=== PATIENT | female | born 1970 | race Caucasian/White ===

== ENCOUNTER 2017-11-19 03:26 | Emergency (ER) | payer OTHER ==
[2017-11-19 03:41] VITALS: BP 118/54
--- NOTE | 2017-11-19 04:09 | EDPHY ---
H & P Time Seen by Provider: 11/19/17 03:35 HPI/ROS: CC: right thumb laceration HPI: This 47-year-old female presents to the emergency department today for a right thumb laceration sustained just prior to arrival. She was at work and throwing the trash into a bin and the bag did not quite make it in the bin so she pushed on the bag and a broken glass sliced her thumb. She has good sensation, and the thumb moves normally. It continues to ooze blood. Her tetanus is up to date from 06/2014. REVIEW OF SYSTEMS: Constitutional: No recent illness. Musculoskeletal: See HPI. Skin: See HPI. Neurological: See HPI. Past Medical/Surgical History: PMH: DVT, Cerebral Clot PSH: Breast lump, jaw surgery NKDA Meds: ASA, MVI Primary Care Provider: Denied Social History: h/o tobacco use Smoking Status: Unknown if ever smoked Physical Exam: General Appearance: Alert, anxious. Eyes: Pupils equal and round no pallor or injection. ENT, Mouth: Mucous membranes are moist. Respiratory: Non labored breathing. Cardiovascular: Normal peripheral perfusion. Neurological: Awake and alert, sensory and motor exams grossly normal. Skin: Warm and dry. Musculoskeletal: Neck is supple. Extremities are symmetrical, full range of motion. There is a 1.5 cm flap laceration over the mercado aspect of the right thumb at the DIP joint. Sensation intact. Motor intact. No evidence of foreign body or tendon injury. Psychiatric: Patient is oriented X 3, there is no agitation. DIFFERENTIAL DIAGNOSIS: After history and physical exam differential diagnosis was considered for but not limited to: thumb laceration, tendon injury, foreign body Constitutional: Initial Vital Signs Temperature (C) 98.6 F 11/19/17 03:36 Heart Rate 82 11/19/17 03:36 Respiratory Rate 16 11/19/17 03:36 Blood Pressure 118/54 L 11/19/17 03:36 O2 Sat (%) 93 11/19/17 03:36 O2 Delivery Mode Room Air Allergies/Adverse Reactions: No Known Allergies Allergy (Verified 11/19/17 03:41) Home Medications: Medication Instructions Recorded Multivitamin 06/26/16 Aspirin 325 mg (*) 11/19/17 Cephalexin 500 mg PO QID 7 Days #28 tablet 11/19/17 Medical Decision Making ED Course/Re-evaluation: The patient was seen and examined. Vital signs reviewed. Procedure note: A digital block of the right thumb was performed using 2 mL of 1% plain lidocaine in the usual sterile fashion. The 1.5 cm wound was thoroughly cleansed and draped in a sterile fashion. It was then explored using a sterilely gloved hand and showed no evidence of foreign body or visible tendon injury. There was a small amount of thin rolled skin that was debrided from the wound. The laceration was then repaired using #4 - 4.0 Prolene simple interrupted sutures with good results. Bleeding controlled. The patient tolerated the procedure well. The procedure was performed by myself and took approximately 15 minutes. A sterile dressing was applied by the staging technicianKathe bynum. Discharge instructions were reviewed. Rx for cephalexin given, to start only if signs of infection as discussed. Suture removal in 7-10 days here or with a PCP. Recheck sooner if problems. Patient also given the name of ortho, hand specialist, Dr. Maria G Vogt, if any concerns as discussed. Departure - Departure Disposition: Home, Routine, Self-Care Clinical Impression: Laceration of thumb without complication Qualifiers: Encounter type: initial encounter Laterality: right Qualified Code(s): S61.011A - Laceration without foreign body of right thumb without damage to nail , initial encounter Condition: Good Instructions: Care For Your Stitches (ED), Finger Laceration (ED) Additional Instructions: Keep wound clean and dry. Start the antibiotic if increased redness, red streaks, or purulent discharge and recheck immediately. Otherwise, SUTURE REMOVAL in 7-10 days. If persistent pain, follow up in the ER or with the hand specialist listed, Dr. Maria G Vogt. Referrals: Patient,NotPresent [Primary Care Provider] - As per Instructions Maria G Vogt MD [Medical Doctor] - As per Instructions Prescriptions: Cephalexin 500 mg PO QID 7 Days #28 tablet
== END 2017-11-19 04:22 | disposition home or self-care (01) ==
LOC: CED 03:26
PROC: 0HQFXZZ Repair Right Hand Skin, External Approach (ICD-10-PCS; principal; 2017-11-19)
DX: S61.011A Laceration without foreign body of right thumb without damage to nail, initial encounter (principal); Z79.82 Long term (current) use of aspirin; W25.XXXA Contact with sharp glass, initial encounter; Y92.69 Other specified industrial and construction area as the place of occurrence of the external cause; Y99.0 Civilian activity done for income or pay; Y93.89 Activity, other specified

== ENCOUNTER 2018-11-28 21:27 | Emergency (ER) | payer SELFPAY ==
[2018-11-28] MEDS ORDERED: NS 1,000 ML IV ONE (21:48)
--- NOTE | 2018-11-28 21:50 | EDPHY ---
H & P Stated Complaint: Left calf and lower abdominal pain Source: Patient Exam Limitations: No limitations - Personal History LMP (Females 10-55): IUD In Place Current Tetanus/Diphtheria Vaccine: Yes Current Tetanus Diphtheria and Acellular Pertussis (TDAP): Yes Tetanus Vaccine Date: 2013 - Medical/Surgical History Hx Asthma: No Hx Chronic Respiratory Disease: No Hx Diabetes: No Hx Cardiac Disease: No Hx Renal Disease: No Hx Cirrhosis: No Hx Alcoholism: No Hx HIV/AIDS: No Hx Splenectomy or Spleen Trauma: No Other PMH: DVT, Cerebral clot, fibroids, ovarian torsion. Jaw surgery - Family History Significant Family History: No pertinent family hx - Social History Smoking Status: Unknown if ever smoked Alcohol Use: Sober Drug Use: None Time Seen by Provider: 11/28/18 21:32 HPI/ROS: CHIEF COMPLAINT: Left calf and lower abdominal pain HISTORY OF PRESENT ILLNESS: The patient is a 48-year-old female with a history of previous DVT. she no longer on anticoagulants . She comes to the emergency department complaining of left calf and cramping for the last 10 days. It only hurts when she is walking. No pain at rest. No swelling or edema. No recent travel. She also has been complaining of lower abdominal pain and cramping and has felt constipated for the same last 10 days. No nausea vomiting. No vaginal bleeding or discharge. No urinary symptoms. She does have a Mirena IUD and was wondering if this was causing her pain. She has had in place for 4 years with no problem before now. She denies back pain or upper leg pain. No weakness or numbness. Severity: Moderate Modifying factors: None REVIEW OF SYSTEMS: Constitutional: denies: chills, fever, recent illness, recent injury EENTM: denies: blurred vision, double vision, nose congestion Respiratory: denies: cough, shortness of breath Cardiac: denies: chest pain, irregular heart rate, lightheadedness, palpitations Gastrointestinal/Abdominal: See HPI Genitourinary: denies: dysuria, frequency, hematuria, pain Musculoskeletal: See HPI Skin: denies: lesions, rash, jaundice, bruising Neurological: denies: headache, numbness, paresthesia, tingling, dizziness, weakness Hematologic/Lymphatic: denies: blood clots, easy bleeding, easy bruising Immunologic/allergic: denies: HIV/AIDS, transplant 10 systems reviewed and negative except as noted EXAM: GENERAL: Well-appearing, well-nourished and in no acute distress. HEAD: Atraumatic, normocephalic. EYES: Pupils equal round and reactive to light, extraocular movements intact, sclera anicteric, conjunctiva are normal. ENT: TMs normal, nares patent, oropharynx clear without exudates. Moist mucous membranes. NECK: Normal range of motion, supple without lymphadenopathy or JVD. LUNGS: Breath sounds clear to auscultation bilaterally and equal. No wheezes rales or rhonchi. HEART: Regular rate and rhythm without murmurs, rubs or gallops. ABDOMEN: Soft, nontender, normoactive bowel sounds. No guarding, no rebound. No masses appreciated. BACK: No CVA tenderness, no spinal tenderness, step-offs or deformities EXTREMITIES: Normal range of motion, no pitting or edema. No clubbing or cyanosis. No tenderness to calf. Negative Homans NEUROLOGICAL: Cranial nerves II through XII grossly intact. Normal speech, normal gait. 5/5 strength, normal movement in all extremities, normal sensation , normal reflexes PSYCH: Normal mood, normal affect. SKIN: Warm, dry, normal turgor, no visible rashes or lesions. (Lars Joel) Constitutional: Initial Vital Signs Temperature (C) 36.6 C 11/28/18 21:36 Heart Rate 81 11/28/18 21:36 Respiratory Rate 16 11/28/18 21:36 Blood Pressure 148/102 H 11/28/18 21:36 O2 Sat (%) 96 11/28/18 21:36 O2 Delivery Mode Room Air Allergies/Adverse Reactions: No Known Allergies Allergy (Verified 11/19/17 03:41) Home Medications: Medication Instructions Recorded Multivitamin 06/26/16 Aspirin 325 mg (*) 11/19/17 Cephalexin 500 mg PO QID 7 Days #28 tablet 11/19/17 Diclofenac Sodium [Voltaren 75 MG 75 mg PO BID 10 Days tab 11/29/18 (*)] Medical Decision Making ED Course/Re-evaluation: Patient is currently declining a pelvic exam and would like to have blood work and ultrasound and urinalysis done 1st. She has not been sexually active for several years but is concerned about her Mirena possibly being displaced and being the source of her pain. She has not had any unusual discharge or rashes. 11:00 p.m. patient's lab work urinalysis are reassuring. Her abdominal exam is benign. She is currently and ultrasound for her leg and abdomen. Care transferred to Dr. Francisco at shift change. (Lars Joel) Differential Diagnosis: Partial list of the Differential diagnosis considered include but were not limited to; DVT, muscle cramping, constipation, ovarian cyst, fibroid, IUD displacement and although unlikely based on the history and physical exam, I also considered PID, urinary tract infection, kidney stone, appendicitis, diverticulitis, torsion, ischemia, ectopic. (Lars Joel) Other Provider: Care assumed at change of shift. D/w off going physician. Chart reviewed. Pt interviewed and examined. Laboratory studies have included: Normal white count Normal LFTs Normal abdominal as well as pelvic ultrasounds with ID found in the uterus, reports reviewed. Negative left lower extremity DVT ultrasound, reports reviewed. Briefly this woman has had approximately a week's worth of lower abdominal distress. During that time where she typically has a fairly normal regular habit once daily she has had having to go only 3 times. With this there has not been undue amount of straining. Through that time she has had bilateral lower quadrant abdominal discomfort that is not worth the bumps in the road and is not forcing her to be hunched over when she walks. She is worried that her IUD might be displaced as when she is showering she is worried that she can she feel the IUD as her something hard in the vaginal canal toward the rectum. The pain that she has been experiencing all the week has been strictly anterior bilateral lower abdominal distress and does not go into the deeper pelvis at all. No associated nausea or vomiting. She has not been sexually active for 4 years. She is contemplating having the IUD removed by her OBGYN. She does not believe she has any form of exposure to STD. She has never had colonoscopy nor has been never been diagnosed with diverticular disease nor diverticulitis. The right leg DVT occurred in the setting of PCP and Chantix therapy as she was trying to stop smoking. For the last week to 10 days she has had discomfort in the left leg. In particular markedly worse when she standing up walking around. She does find that she is able to sleep with it all the same. She has been taking a decent amount of ibuprofen 400 mg every 4 hr while awake so essentially 4-5 doses in a day. She has also been taking some aspirin during the day because of her concern for her left calf. She cannot recall any form of injury or overuse. Despite the fact that it is spring and spring clean up she has not been doing anything that might have popped bother that. She is frustrated as she is unable to take time off from work to allowed to rest when I suggest such. Objective: She is afebrile temperature equals 36.8, oral on my exam She is not look to be in acute medical distress, no signs of diaphoresis.. She moves about the stretcher well. Abdomen: She feels distended. The the percussion note is variable from flat to tympanitic. There is particular tenderness present in bilateral lower quadrants and not so in the upper quadrants. There is however no rebound or guarding and the abdomen remained soft. Extremities: Straight leg raising negative. Sensation intact. Patellar reflex 3+ Ankle reflex 1+ Great toe extension symmetrical and full without any weakness Normal strength to the ankle, and about the knee. Normal quadriceps. There is an area of discrete induration on the inner aspect of the left mid calf that would correspond to a superficial phlebitis however this is not the area of maximal tenderness nor is it erythematous or inflamed or warm overlying it. The calf feels strained when she dorsiflexes the ankle but I cannot appreciate any cords. While she has relieved the ultrasound showed the IUD to be in adequate position she is distressed because there is no clear explanation for her abdominal pain as well as her leg pain, in particular. With the abdominal discomfort I wonder if indeed were dealing with diverticulitis which is less likely than bowel habit dysfunction. She would rather forego a CT scan at this point in time and would consider doing so in a day or 2 for pain persist despite bowel care. She had brought up the prospect of a course of cortisone therapy or cortisone shot. As she is on a respectable dose of the ibuprofen is time for her to switch from that to a different class. Thereby she will be prescribed diclofenac. I also would really like her to get off this leg thus she will have a note for such with respect to her work. However, I do not think she will actually follow through with that as she clearly seems to be under distress with respect to the prospect of missing work, and modification would not be possible. (Mehul Francisco) - Data Points Medications Given: Discontinued Medications Sodium Chloride (Ns) 1,000 mls @ 0 mls/hr IV EDNOW ONE; Wide Open PRN Reason: Protocol Stop: 11/28/18 21:49 Last Admin: 11/28/18 22:06 Dose: 1,000 mls Point of Care Test Results: CBC CBC Collection Date 11/28/18 CBC Collection Time 22:08 WBC 7.76 RBC 3.92 HGB 13.8 HCT 39.0 PLT 252 Neut # 4.64 Neut 59.9 LYMPH # 2.46 LYMPH 31.7 MCV 99.5 Chemistry 11/28/18 22:12 POC Sodium 138 mEq/L mEq/L (135-145) POC Potassium 3.8 mEq/L mEq/L (3.3-5.0) POC Chloride 105.0 mEq/L mEq/L (97-110) POC Total CO2 22 mEq/L mEq/L (22-31) POC BUN 13 mg/dL mg/dL (7-23) POC Creatinine 0.9 mg/dL mg/dL (0.6-1.0) POC Glucose 87 mg/dL mg/dL (70-100) POC Calcium 9.3 mg/dL mg/dL (8.5-10.4) POC Total Bilirubin 0.8 mg/dL mg/dL (0.1-1.4) POC AST 28 IU/L IU/L (14-46) POC ALT 22 IU/L IU/L (9-52) POC Alk Phosphatase 65 IU/L IU/L (38-126) POC Total Protein 7.2 g/dL g/dL (6.3-8.2) POC Albumin 4.4 g/dL g/dL (3.5-5.0) Urine Collection Date 11/28/18 Collection Time 21:55 HCG Results Negative Urine Dip Collection Date 11/28/18 Collection Time 21:55 Specific [place] (1.002-1.030) 1.025 PH (5.0-7.5) 5.5 Leukocytes (Negative) Negative Nitrites (Negative) Negative Protein (Negative) Negative Glucose (Negative) Negative Ketones (Negative) 1+ Urobilnogen (0.2-1.0 EU) 0.2 Bilirubin (Negative) Negative Blood (Negative) Trace Departure - Departure Disposition: Home, Routine, Self-Care Clinical Impression: Leg pain, left Abdominal pain Qualifiers: Abdominal location: lower abdomen, unspecified Qualified Code(s): R10.30 - Lower abdominal pain, unspecified Condition: Good Instructions: Acute Abdominal Pain (ED), Leg Pain (ED) Additional Instructions: Regarding the ABDOMINAL PAIN: - return if it is getting worse - if the following bowel regimens do not help in 2 days time, then return for a recheck in the morning of November 30 - for the bowels: Mag Citrate OR Miralax, one measuring spoon three times daily for 5 days or until bowel habit back to normal, then daily for two weeks. Regarding the leg: - massage it 2-3 times a day - it is time to get off of it, see your work note - stop the Ibuprofen - begin the diclofenac 75 mg twice a day for a week. Referrals: Patient,NotPresent [Primary Care Provider] - As per Instructions Stand Alone Forms: Work Limited Duty Prescriptions: Diclofenac Sodium [Voltaren 75 MG (*)] 75 mg PO BID 10 Days tab
[2018-11-29 00:41] VITALS: BP 118/50
== END 2018-11-29 01:08 | disposition home or self-care (01) ==
LOC: CED 21:27
DX: M79.662 Pain in left lower leg (principal); R10.30 Lower abdominal pain, unspecified; D25.1 Intramural leiomyoma of uterus; D25.2 Subserosal leiomyoma of uterus; N85.8 Other specified noninflammatory disorders of uterus
CPT/HCPCS: 76705-PO; 76856-PO; 80053-ER; 81025-ER; 85025-QW-ER; 93971-PO; 96360-ER; 99285-ER